=== PATIENT | female | born 1960 | race Native Hawaiian/Other Pacific Islander ===

== ENCOUNTER 2020-03-01 11:55 | Outpatient (CLI) | payer BC | END 2020-03-01 20:36 | disposition home or self-care (01) | LOC: RAD 11:55 | DX: R05 Cough (principal); R06.2 Wheezing ==

== ENCOUNTER 2022-05-14 11:35 | Outpatient (CLI) | payer BC | END 2022-05-14 21:43 | disposition home or self-care (01) | LOC: MAMMO 11:35 | PROVIDERS: ATTEND Nurse Practitioner Family | DX: Z12.31 Encounter for screening mammogram for malignant neoplasm of breast (principal) ==